=== PATIENT | female | born 1995 | race Caucasian/White ===

== ENCOUNTER → 2016-12-06 | Outpatient (CLI) | payer OTHER | LOC: FIMAGING 19:36 | PROVIDERS: ATTEND Physician Assistant Medical | DX: G43.109 Migraine with aura, not intractable, without status migrainosus (principal) ==

== ENCOUNTER 2017-03-23 13:31 | Emergency (ER) | payer OTHER ==
[2017-03-23 13:37] VITALS: TEMP 97.9
--- NOTE | 2017-03-23 14:36 | EDPHY ---
H & P Time Seen by Provider: 03/23/17 14:19 HPI/ROS: CHIEF COMPLAINT: Left-sided numbness HISTORY OF PRESENT ILLNESS: 21-year-old female with a history of migraine headaches presents with left-sided numbness. Onset of a tingling sensation in her left hand at 1:00 p.m., followed by gradually increasing numbness of the entire left side of her body. The symptoms lasted approximately 1 hr and then completely resolved. No subsequent headache and no weakness. She has a history of similar left-sided numbness, followed by a typical migraine headache a few months ago. She had a follow-up MRI of the brain, that was normal. Since then she has been working with a neurologist to help control her migraine headaches and has tried numerous prophylactic medications, with minimal relief. She does not have a headache today. No recent illness. REVIEW OF SYSTEMS: Constitutional: No fever, no chills Eyes: No visual changes ENT: No sore throat Respiratory: No cough, no shortness of breath Cardiac: No chest pain Gastrointestinal: No nausea, no vomiting, no abdominal pain Genitourinary: no dysuria Musculoskeletal: No leg pain or swelling Skin: No rash Neurological: No headache, no weakness Psychiatric: No depression Past Medical/Surgical History: Migraine headaches Social History: [employer] student Smoking Status: Never smoked Physical Exam: General Appearance: Alert, pleasant Eyes: Pupils equal and round, no conjunctival pallor or injection ENT, Mouth: Mucous membranes moist Neck: Normal inspection Respiratory: Lungs are clear to auscultation Cardiovascular: Regular rate and rhythm Gastrointestinal: Abdomen is soft and nontender Neurological: Alert, oriented x3, cranial nerves II through XII intact, motor 5 /5, sensory intact to light touch, normal gait Skin: Warm and dry, no rash Extremities: Nontender, no pedal edema Psychiatric: Mood and affect normal Constitutional: Initial Vital Signs Temperature (C) 36.6 C 03/23/17 13:32 Heart Rate 83 03/23/17 13:32 Respiratory Rate 16 03/23/17 13:32 Blood Pressure 131/74 H 03/23/17 13:32 O2 Sat (%) 99 03/23/17 13:32 O2 Delivery Mode Room Air Allergies/Adverse Reactions: Penicillins Allergy (Verified 03/23/17 13:36) Home Medications: Medication Instructions Recorded NK [No Known Home Meds] 03/23/17 Medical Decision Making ED Course/Re-evaluation: This patient presents with transient neurologic symptoms, now completely resolved. Likely migrainous etiology, given prior similar symptoms with normal MRI. I do not feel that repeat MRI is indicated in this patient. I do not have any suspicion that this was a TIA. Given that she is back to normal and her neurologic exam is completely normal, I feel that she is safe and stable for discharge home. She will follow up with her neurologist. Differential Diagnosis: Headache including but not limited to CVA/TIA, subarachnoid hemorrhage, migraine headache, hypoglycemia - Data Points Laboratory Results: Laboratory Results 03/23/17 14:15 03/23/17 14:15 03/23/17 03/23/17 14:15 14:15 WBC 8.11 10^3/uL 10^3/uL (3.80-9.50) RBC 4.63 10^6/uL 10^6/uL (4.18-5.33) Hgb 14.3 g/dL g/dL (12.6-16.3) Hct 41.0 % % (38.0-47.0) MCV 88.6 fL fL (81.5-99.8) MCH 30.9 pg pg (27.9-34.1) MCHC 34.9 g/dL g/dL (32.4-36.7) RDW 12.2 % % (11.5-15.2) Plt Count 330 10^3/uL 10^3/uL (150-400) MPV 9.4 fL fL (8.7-11.7) Neut % (Auto) Not Reported Lymph % (Auto) Not Reported [place] % (Auto) Not Reported Eos % (Auto) Not Reported Baso % (Auto) Not Reported Nucleat RBC Rel Count 0.0 % % (0.0-0.2) Absolute Neuts (auto) Not Reported Absolute Lymphs (auto) Not Reported Absolute Monos (auto) Not Reported Absolute Eos (auto) Not Reported Absolute Basos (auto) Not Reported Absolute Nucleated RBC 0.00 10^3/uL 10^3/uL (0-0.01) Immature Gran % Not Reported Seg Neutrophils % 33 % % Band Neutrophils % 2 % % Lymphocytes % 33 % % Monocytes % 2 % % Eosinophils % 28 % % Basophils % 2 % % Immature Gran # Not Reported Absolute Seg Neuts 2.68 10^/uL 10^/uL (1.70-6.50) Absolute Band Neuts 0.16 10^3/uL 10^3/uL (0.00-0.70) Absolute Lymphocytes 2.68 10^3/uL 10^3/uL (1.00-3.00) Absolute Monocytes 0.16 10^3/uL L 10^3/uL (0.30-0.80) Absolute Eosinophils 2.27 10^3/uL H 10^3/uL (0.03-0.40) Absolute Basophils 0.16 10^3/uL H 10^3/uL (0.02-0.10) RBC/WBC/PLT Morphology NORMAL (NORMAL) Platelet Estimate ADEQUATE (ADEQ) Smear Review By Zarina TSAI MD Sodium 144 mEq/L mEq/L (135-145) Potassium 3.9 mEq/L mEq/L (3.5-5.2) Chloride 105 mEq/L mEq/L (97-110) Carbon Dioxide 24 mEq/l mEq/l (22-31) Anion Gap 15 mEq/L mEq/L (8-16) BUN 9 mg/dL mg/dL (7-23) Creatinine 0.7 mg/dL mg/dL (0.6-1.0) Estimated GFR > 60 Glucose 86 mg/dL mg/dL (70-100) Calcium 10.1 mg/dL mg/dL (8.5-10.4) Departure - Departure Disposition: Home, Routine, Self-Care Clinical Impression: Paresthesia Condition: Good Instructions: Migraine Headache (ED) Additional Instructions: Follow-up with your neurologist.
[2017-03-23 14:41] LABS: PLATELET COUNT 330 10^3/uL (150-400)
--- NOTE | 2017-03-23 14:45 | CPEKG ---
Heart Rate: 69 RR Interval: 870 P-R Interval: 140 QRSD Interval: 78 QT Interval: 372 QTC Interval: 399 P [place]: 51 QRS [place]: 22 T Wave [place]: 24 EKG Severity - NORMAL ECG - EKG Impression: SINUS RHYTHM Electronically Signed By: Jossie Mcmahan 23-Mar-2017 19:30:54
[2017-03-23 15:07] VITALS: BP 107/73; PULSE 73; RESP 18; O2SAT 100
== END 2017-03-23 15:07 | disposition home or self-care (01) ==
DX: R20.2 Paresthesia of skin (principal)